=== PATIENT | male | born 1940 | race Caucasian/White ===

== ENCOUNTER 2017-04-07 11:03 | Emergency (ER) | payer MEDICARE, OTHER ==
--- NOTE | ~2017-04-07 | CR72 ---
[facility] A Service of [facility] & [facility] RADIOLOGY TEXT RESULTS PATIENT: ADRIÁN OREILLY LOCATION: [facility] : 44 UNIT #: [id number] AGE: [address]: Jason Broderick MD SEX: M ORDER DR: [id number] [facility] [address] [place], [place] [address] [id number] E MR#: [id number] Acc #: [id number] NAME: ADRIÁN OREILLY : 1940 SEX: M STUDY DATE/TIME: 04/07/2017 13:49 UNIT: [facility] ROOM: STUDY DESCRIPTION: CR Chest Single View Portable Attending Physician: Jason Broedrick M.D. Ordering Physician: Jason Broderick M.D. Primary Care Physician: No Primary Care Physician MEDICAL IMAGING REPORT This report is preliminary unless electronic signature is present EXAM Portable chest 04/07/2017 INDICATION Chest congestion and cough for 3 days. FINDINGS AP portable chest was obtained. No comparison. Lung volumes are low. Cannot exclude some infiltrate or atelectasis behind the heart at the left base. The right lung is clear. No pneumothorax. 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 IMPRESSION Cardiomegaly with CABG change. There appears to be atelectasis or infiltrate behind the heart at the left base. Dictated by... Wilmer Tran Jr., M.D. THIS IS AN ELECTRONICALLY VERIFIED REPORT Wilmer Tran Jr., M.D. at 04/07/2017 8:48 PM NATALEE/mayco TD: 04/07/2017 14:56 JOB #: [id number] MEDICAL IMAGING REPORT Page 1 of 1 COPY
[~2017-04-07 11:03] MED LIST: MEDROL4 MG/DOSE- PO; NEURONTIN PO
[2017-04-07 14:32] LABS: BASOPHIL# 0.1 X10e3 (0-0.3); BASOPHIL% 0.6 % (0-2.5); EOSINOPHIL# 0.1 X10e3 (0-0.7); HEMATOCRIT 26.9 % (38.0-50.0); LYMPHOCYTE# 1.3 X10e3 (1.0-3.5); LYMPHOCYTE% 13.8 % (17.0-45.0); MEAN CELL VOLUME 95.6 FL (83-96); MEAN CORPUSCULAR HGB CONC 33.5 g/dL (30-36); MEAN PLATELET VOLUME 9.4 FL (6.5-11.5); MONOCYTE# 0.7 X10e3 (0-1.0); NEUTROPHIL% 76.6 % (40-75); PLATELET COUNT 177 X10e3 (140-420); RED BLOOD COUNT 2.82 X10e (3.90-5.60); RED CELL DISTRIBUTION WIDTH 14.3 % (11.0-15.5); WHITE BLOOD COUNT 9.1 X10e3 (4.0-10.5)
[2017-04-07 14:35] LABS: DIFF IND NO
[2017-04-07 14:54] LABS: ALBUMIN SERUM 3.1 g/dL (3.5-5.0); BILIRUBIN, DIRECT 0.4 mg/dL (0.0-0.2); BILIRUBIN,INDIRECT 0.4 mg/dL (0.0-0.9); BILIRUBIN,TOTAL 0.8 mg/dL (0.2-2.0); CALCIUM SERUM 8.5 mg/dL (8.4-10.2); CREATININE SERUM 1.9 mg/dL (0.6-1.4); POTASSIUM 3.2 mmol/L (3.5-5.1)
== END 2017-04-07 16:25 | disposition home or self-care (01) ==
LOC: CED 11:03
PROVIDERS: Emergency Medicine
DX: J18.9 Pneumonia, unspecified organism (principal); I12.9 Hypertensive chronic kidney disease with stage 1 through stage 4 chronic kidney disease, or unspecified chronic kidney disease; E11.22 Type 2 diabetes mellitus with diabetic chronic kidney disease; N18.9 Chronic kidney disease, unspecified; Z79.899 Other long term (current) drug therapy; Z95.1 Presence of aortocoronary bypass graft
CPT/HCPCS: 36415; 71010; 80048; 80076; 85025; 99283